=== PATIENT | female | born 1960 | race Two or more races ===

== ENCOUNTER 2018-12-04 05:26 | Inpatient (IN) | payer MEDICAID ==
[~2018-12-04] VITALS: Ht 162.6 cm; Wt 95.3 kg
[2018-12-04] MEDS ORDERED: LORA-259 PO (06:10)
[2018-12-04] MEDS ORDERED: DIGO125T PO (06:10)
[2018-12-04] MEDS ORDERED: FERR325T23 PO (06:10)
[2018-12-04] MEDS ORDERED: METO100T14 PO (06:10)
[2018-12-04] MEDS ORDERED: FURO-144 PO (06:10)
[2018-12-04] MEDS ORDERED: POTA10CA43 PO (06:10)
[2018-12-04] MEDS ORDERED: FAMO20TA8 PO (06:10)
[2018-12-04] MEDS ORDERED: AMIT150T PO (06:10)
[2018-12-04] MEDS ORDERED: ALBU18HF2 INH (06:10)
[2018-12-04] MEDS ORDERED: HYDR-4354 PO (06:10)
[2018-12-04] MEDS ORDERED: SPIR50TA5 PO (06:10)
[2018-12-04] MEDS ORDERED: LEVO50TA8 PO (06:10)
[2018-12-04] MEDS ORDERED: DOCU-141 PO (06:10)
[2018-12-04] MEDS ORDERED: FLUO20CA36 PO (06:10)
[2018-12-04] MEDS ORDERED: MAGN400T6 PO (06:10)
[2018-12-04] MEDS ORDERED: ISOS30TA6 PO (06:10)
[2018-12-04] MEDS ORDERED: CAPT12.53 PO (06:10)
[2018-12-04 07:02] VITALS: BP 124/76
--- NOTE | 2018-12-04 07:05 | NUR ---
RN INITIAL NOTES ADMITTED PATIENT AT 0540. PATIENT IS A/O X4. PATIENT HAS OXYGEN RUNNING AT 3L VIA NC. NO SIGNS OF RESPIRATORY DISTRESS. DENIES SHORTNESS OF BREATH. DENIES PAIN AT THIS TIME. ALL NEEDS MET AT THIS TIME. SAFETY PRECAUTIONS IMPLEMENTED. CALL LIGHT WITHIN REACH. SIDERAILS UP. BED LOCKED. WILL ENDORSE TO AM SHIFT.
[2018-12-04 08:00] VITALS: BP 105/65
--- NOTE | 2018-12-04 08:00 | NUR ---
MS RN NOTES PATIENT IN BED RESTING ALERT, ORIENTED X3 REPORTS PAIN TO LEFT KNEE. PATIENT SCHEDULED FOR LEFT KNEE ARTHROPLASTY, CONSENTS OBTAINED PATIENT SEEN BY DR. LAW. BED IN LOW LOCKED POSITION CALL LIGHT WITHIN REACH. PERIPHERAL IV ON LEFT WRIST G22 INTACT, PATENT. WILL CONTINUE TO MONITOR.
[2018-12-04] MEDS ORDERED: ZOLPIDEM TARTRATE 5 MG TABLET PO PRN (09:00)
[2018-12-04] MEDS ORDERED: ACETAMINOPHEN 325 MG TABLET PO PRN (09:00)
[2018-12-04] MEDS ORDERED: ONDANSETRON HCL/PF 4 MG/2 ML VIAL IVP PRN ×2 (09:00→11:00)
[2018-12-04] MEDS ORDERED: MAG HYDROX/AL HYDROX/SIMETH 30 ML UDC PO PRN ×2 (09:00→11:00)
[2018-12-04] MEDS ORDERED: MORPHINE SULFATE INJ 2 MG/ML DISP.SYRIN IV PRN (09:00)
[2018-12-04] MEDS ORDERED: MAGNESIUM HYDROXIDE 30 ML UDC PO PRN (09:00)
[2018-12-04] MEDS ORDERED: Z GUARD REMEDY 2 OZ OINT TP PRN (09:00)
[2018-12-04] MEDS ORDERED: HYDROCODONE/APAP 5/325MG 1 EACH TABLET PO PRN (09:00)
[2018-12-04] MEDS ORDERED: diphenhydrAMINE HCL 25 MG CAPSULE PO PRN (11:00)
[2018-12-04] MEDS ORDERED: BISACODYL SUPP (10 MG) 10 MG/SUPP.RECT SUPP.RECT RC PRN (11:00)
[2018-12-04] MEDS ORDERED: HYDROCODONE/APAP 10/325MG 1 EA TABLET PO PRN ×2 (11:00)
[2018-12-04] MEDS ORDERED: AMITRIPTYLINE HCL 25 MG TABLET PO PRN (11:00)
[2018-12-04] MEDS ORDERED: MENTHOL/CETYLPYRD (CEPACOL) 1 LOZ LOZENGE PO PRN (11:00)
[2018-12-04] MEDS ORDERED: LORAZEPAM 1 MG TABLET PO PRN (11:00)
[2018-12-04] MEDS ORDERED: SCOPOLAMINE HBR 1 EA PATCH.TD72 TD ONE (11:09)
[2018-12-04] MEDS ORDERED: FENTANYL PF 100MCG/2ML AMPUL ONE (11:09)
[2018-12-04] MEDS ORDERED: MIDAZOLAM HCL 2 MG/2ML VIAL ONE (11:09)
[2018-12-04] MEDS ORDERED: BUPIVACAINE 0.5 % PF 150 MG/30 ML VIAL ONE (11:26)
[2018-12-04] MEDS ORDERED: BACITRACIN 50000 UNITS/VIAL ONE (11:26)
[2018-12-04] MEDS ORDERED: TRANEXAMIC ACID 3,000 MG in SODIUM CHLORIDE IRRIG SOLUTION 70 ML IR ONE (12:00)
[2018-12-04] MEDS ORDERED: CLINDAMYCIN 900 MG/6 ML VIAL ONE (12:08)
[2018-12-04] MEDS ORDERED: HYDROMORPHONE INJ 2 MG/ML DISP.SYRIN ONE (12:18)
[2018-12-04] MEDS ORDERED: HYDROMORPHONE MDV 30 MG in IV NS 0.9% 15 ML, PCA TOTAL VOLUME 1 BAG IV PRN ×3 (13:00)
[2018-12-04] MEDS ORDERED: HYDROMORPHONE 1 MG/1 ML DISP.SYRIN ONE (13:32)
--- NOTE | 2018-12-04 15:00 | NUR ---
MS RN NOTES RECEIVED PATIENT FROM OR PATIENT APPEARS SEDATED, WHEN CALLING PATIENTS NAME SHE DOES OPEN EYES BUT DOES NOT ANSWER ANY QUESTIONS AND GOES RIGHT BACK TO SLEEP. OR NURSE AT BEDSIDE PATIENTS VS WNL BP 132/64 PULSE 99 O2 SATURATION 99 RESPIRATION 12. OR NURSE NOTIFIED ANESTHESIOLOGIST OF PATIENTS SYMPTOMS ORDERS TO CONTINUE MONITORING AND PLACE PATIENT ON TELE. PATIENT PLACED ON TELE MONITORING READING A-FIB. OR NURSE LEFT PATIENTS BEDSIDE STATING SHE WILL RETURN TO CHECK ON PATIENT. WILL CONTINUE CLOSE MONITORING.
--- NOTE | 2018-12-04 15:15 | NUR ---
CORPORATE SECURITIES RESEARCH ANALYST NOTES PATIENT NOTED WITH DECREASED RESPIRATION AT 10 BREATHS PER MINUTE ANESTHESIOLOGIST MADE AWARE STATES HE WILL BE AT PATIENTS BEDSIDE TO EVALUATE.
--- NOTE | 2018-12-04 15:30 | NUR ---
MS RN NOTES PATIENT WAS SEEN AND EVALUATED BY ANESTHESIOLOGIST NARCAN WAS ADMINISTERED IV AND ORDERS OBTAINED TO TRANSFER PATIENT TO [facility]. PATIENT AWAKE ABLE TO ANSWER SIMPLE QUESTIONS VS WNL. DINKEY LOCOMOTIVE ENGINEER NOTIFIED OF ORDERS WAITING FOR A BED.
--- NOTE | 2018-12-04 15:46 | NUR ---
DIP TANKER NOTES PATIENT TRANSFERRED TO [facility] ROOM 118 REPORT GIVEN AT BEDSIDE TO RN.
--- NOTE | 2018-12-04 19:15 | NUR ---
TD/RN INITIAL NOTES RECEIVED PT IN BED, AT BEDSIDE. RESPONSE TO QUESTION BUT APPEARS DROWSY AND WITH SOME CONFUSION. CONTROLLED AFIB ON TELE. ON SIMPLE MASK ON 6L. NO SOB NOTED. L WRIST G22 HEPLOCK INTACT AND PATENT. PT IS S/P LEFT KNEE ARTHROPLASTY. LLE ELEVATED WITH KNEE IMMOBILIZER. PARARESCUE CRAFTSMAN PUMP ORDER ON HOLD FOR NOW PT STILL APPEAR DROWSY. SAFETY MEASURES IN PLACED. CALL LIGHT WITHIN EASY REACH. WILL CONT TO MONITOR
[2018-12-04] MEDS ORDERED: KEY,NONCONTROL,TO KEEP IN PYXI 1 EA MC ONE (19:44)
[2018-12-04 20:00] VITALS: BP 124/84
--- NOTE | 2018-12-04 20:13 | NUR ---
[facility] RN NOTES PATIENT RECEIVED POST LEFT KNEE OPERATION. PATIENT HEAVILY SEDATED BUT RESPONDING APPROPRIATELY TO QUESTIONS. V/S WNL. LABOY AT BEDSIDE. REPORT TAKEN FROM TRANSFER AND PUMPHOUSE OPERATOR. PATIENT TO BE MONITORED FOR LOC AND SURGICAL SEDATION RECOVERY. NO SOB. PATIENT ON 6 LITERS O2 VIA MASK. PATIENT CARE HANDED OVER TO TEACHER PUBLIC HEALTH RN.
[2018-12-04] MEDS: CLINDAMYCIN 600 MG in IV D5W 50 ML IV SCH (20:27)
--- NOTE | 2018-12-04 20:51 | NUR ---
Met with patient and spouse at bedside. Patient had elective knee surgery done today. She lives with her spouse and adult son in a single level home in [place]. Prior to admission, she use her wheelchair for mobility. Her is her primary source of support and assist with adl's. She owns a walker, commode and wheelchair. Her CPM has been delivered and awaiting delivery for her shower chair. Patient states she was on homehealth in the past and would like to resume same homehealth services. Her family will bring in the homehealth contact info in am. Patient does not want to go to SNF, current plan is to return home. Her will provide ride. Addendum: 12/04/18 at 2053 by HUNTER CAPUTO RN Amended: Links added.
[2018-12-04] MEDS: FAMOTIDINE (20 MG) 20 MG TABLET PO SCH (21:00)
[2018-12-04] MEDS: IV LR 1000 ML 1,000 ML IV PRN (21:01)
[2018-12-05] VITALS (8 sets, daily range): BP systolic 110–141; BP diastolic 51–95
[2018-12-05] MEDS: CLINDAMYCIN 600 MG in IV D5W 50 ML IV SCH ×2 (00:17→05:17)
[2018-12-05] MEDS: HYDROMORPHONE 1 MG/1 ML DISP.SYRIN SQ PRN ×3 (05:53→17:41)
[2018-12-05 07:01] LABS: BASOPHILS % (AUTO) 0.3 % (0.0-2.0); EOSINOPHILS % (AUTO) 1.5 % (0.0-6.0); HEMATOCRIT 37 % (33-45); HEMOGLOBIN 12.4 g/dL (11.5-14.8); LYMPHOCYTES # (AUTO) 0.7 /CMM (0.8-4.8); LYMPHOCYTES % (AUTO) 8.7 % (20.0-44.0); MEAN CORPUSCULAR HGB CONC 34 g/dl (31.0-36.0); MEAN CORPUSCULAR VOLUME 96 fL (82-100); MONOCYTES # (AUTO) 0.6 /CMM (0.1-1.30); MONOCYTES % (AUTO) 7.1 % (2.0-12.0); NEUTROPHILS # (AUTO) 6.5 /CMM (1.8-8.9); NEUTROPHILS % (AUTO) 82.4 % (43.0-81.0); PLATELET COUNT (AUTO) 169 /CMM (150-450); RED BLOOD CELL COUNT(AUTO) 3.84 MIL/uL (4.0-5.2); WHITE BLOOD COUNT (AUTO) 7.9 K/uL (4.3-11.0)
[2018-12-05 07:03] LABS: CALCIUM, SERUM 9.1 mg/dL (8.5-10.1); CREATININE 1.3 mg/dL (0.6-1.3); MAGNESIUM 2.2 mg/dL (1.8-2.4); PHOSPHORUS 3.1 mg/dL (2.5-4.9); POTASSIUM 4.9 mmol/L (3.5-5.1)
--- NOTE | 2018-12-05 07:27 | NUR ---
RN NOTES PT IN STABLE CONDITION. NO ACUTE CHANGES THROUGHOUT SHIFT. ALL NEEDS ANTICIPATED. SAFETY MEASURES AND ASPIRATION PRECAUTION OBSERVED AT ALL TIMES. ENDORSED TO AM SHIFT RN FOR TULIO
--- NOTE | 2018-12-05 07:35 | NUR ---
RN NOTE: RECEIVED PATIENT IN BED, AWAKE, ALERT AND WITH EPISODES OF CONFUSION AT TIMES. RESPIRATION EVEN AND UNLABORED. ON O2 2L/MIN VIA NC AND SATURATING 95%. PAIN WAS MANAGED WITH DILAUDID 1MG SQ Q3HR PRN. (L) WRIST IV SITE NOTED PATENT AND INTACT AND INFUSING LR @ 100 ML/HR. (L) LOWER LEG NOTED WITH BRACE IN PLACED. PATIENT WAS NOTED WITH Theresa BARAKAT IN THE MANAGER PORT AND PER PM SHIFT NURSE IT WAS NOTED SINCE LAST NIGHT. WILL FOLLOW-UP WITH THE HOSPITALIST TODAY RE: THE MEDICATION RECONCILIATION INCLUDING THE BLOOD THINNER XARELTO. CALL LIGHT WITHIN REACH. NEEDS ANTICIPATED. PATIENT REMAINED ON NPO STATUS AT THIS TIME.
[2018-12-05] MEDS ORDERED: DOCUSATE SODIUM 100 MG CAPSULE PO SCH (09:00)
--- NOTE | 2018-12-05 09:04 | NUR ---
RN NOTE: SPOKE WITH DR. LUGO AND INFORMED HIM THAT THE PATIENT WAS NOTED AWAKE, ALERT WITH INTERMITTENT CONFUSION AT THIS TIME. NOT ON ANY FORM OF DISTRESS OR PAIN. SHE HAS BEEN A. FIB WITH HEART RATE OF 125 ON THE HEART MONITOR. PER MD, HE WILL COME TO THE UNIT AND SEE THE PATIENT TODAY BEFORE RESTARTING HER HOME MEDICATIONS. PER MD, OK TO GIVE PO MEDICATIONS NOW AND THE PATIENT MADE AWARE. NO DIET ORDER WAS STARTED FOR NOW PER MD. DR. LUGO WAS ALSO INFORMED THAT PER DR. ORONA (PAIN MGMT) THE PATIENT CAN BE STARTED WITH ASPIRIN.
[2018-12-05] MEDS: Fluoxetine 10 mg capsule PO SCH (10:00)
[2018-12-05] MEDS: FAMOTIDINE (20 MG) 20 MG TABLET PO SCH ×2 (10:00→21:35)
[2018-12-05] MEDS: ASPIRIN 325 MG TABLET PO SCH (10:39)
[2018-12-05] MEDS: IV LR 1000 ML 1,000 ML IV PRN ×2 (10:44→21:35)
[2018-12-05] MEDS ORDERED: FAMOTIDINE (20 MG) 20 MG TABLET PO PRN (12:30)
[2018-12-05] MEDS ORDERED: LORAZEPAM 1 MG TABLET PO PRN (12:30)
[2018-12-05] MEDS ORDERED: ALBUTEROL FS 2.5 MG/0.5 ML VIAL.NEB NEB PRN (13:30)
[2018-12-05] MEDS: DIGOXIN 0.125 MG TABLET PO SCH (14:13)
--- NOTE | 2018-12-05 16:36 | NUR ---
RN NOTE: CALLED AND SPOKE WITH DR. LUGO REGARDING THE PATIENT'S DIET. PER MD, START THE PATIENT WITH CARDIAC DIET FOR DINNER TODAY. ORDER, NOTED AND CARRIED OUT. PATIENT AND PRESENT AT THE BEDSIDE WERE BOTH INFORMED.
[2018-12-05] MEDS: MAGNESIUM OXIDE 400 MG TABLET PO SCH (16:43)
[2018-12-05] MEDS: DOCUSATE SODIUM 100 MG CAPSULE PO SCH (16:43)
[2018-12-05] MEDS: POTASSIUM CHLORIDE 10 MEQ TABLET.SA PO SCH (16:43)
[2018-12-05] MEDS: FERROUS SULFATE (325 MG) 325 MG/TAB TABLET PO SCH (16:43)
[2018-12-05] MEDS: RIVAROXABAN 15 MG TABLET PO SCH (16:44)
[2018-12-05] MEDS: FUROSEMIDE 40 MG TABLET PO SCH (16:45)
[2018-12-05] MEDS ORDERED: CAPTOPRIL 12.5 MG TABLET PO SCH (17:00)
--- NOTE | 2018-12-05 19:40 | NUR ---
RN NOTE: PATIENT ON STABLE CONDITION. ATE 100% OF HER DINNER MEAL. PAIN MEDICATION (DILAUDID 1MG SQ) WAS MANAGING THE PATIENT'S PAIN. BEDSIDE REPORT WAS GIVEN TO PM SHIFT NURSE FOR CONTINUITY OF CARE.
--- NOTE | 2018-12-05 19:55 | NUR ---
RN INITIAL NOTES: RECEIVED REPORT FROM JANIE SEVERINO. PT IN BED, SLEEPING, AROUSES TO TACTILE STIMULI, APPEARS CALM AND COMFORTABLE, PT IS A/O X2-3, FORGETFUL CONFUSED AT TIMES. S/P LEFT KNEE ARTHROPLASTY 12/[address] LAW. LEFT LEG SURGICAL DRESSING IN PLACED, BRACED IN PLACED, LEG OFFLOADED ON PILLOWS. PT DENIES ANY NUMBNESS TINGLING SENSATION ON LEFT LEG. FOR PT EVAL IN AM. IV ACCESS PATENT AND FLUSHING WELL, INFUSING WITH LR AT 100ML/HR. SAFETY PRECAUTIONS FOR FALL INITIATED, CALL LIGHT IN REACH, WILL CONTINUE MONITORING PT.
--- NOTE | 2018-12-05 20:30 | NUR ---
RN NOTES: AFIB 106, HIGHEST 140 DURING THE DAY, MD AWARE, MED RECON DONE, DUE MEDS GIVEN BY DAY RN. PT HAS METOPROLOL FOR NIGHT SCHEDULE
--- NOTE | 2018-12-05 21:00 | NUR ---
RN NOTES: PT SLEEPING, AROUSABLE, STATED HER PAIN IS MANAGEABLE 3-12/23, OFFERED PAIN MEDICATION PATIENT INSTEAD ASKED FOR FOOD INSTEAD, WILL CONTINUE MONITORING PT.
[2018-12-05] MEDS: METOPROLOL TARTRATE 50 MG TABLET PO SCH (21:44)
[2018-12-05] MEDS ORDERED: AMITRIPTYLINE HCL 50 MG TABLET PO SCH (22:00)
--- NOTE | 2018-12-05 22:30 | NUR ---
RN NOTES: BED BATH PROVIDED BY TALENT DEVELOPMENT DIRECTOR, PT DENIES ANY PAIN AT THIS TIME
[2018-12-06] VITALS (7 sets, daily range): BP systolic 103–138; BP diastolic 59–76
--- NOTE | 2018-12-06 00:30 | NUR ---
RN NOTES: FOUND PT SLEEPING, APPEARS CALM AND COMFORTABLE, RESPIRATION EVEN AND UNLABORED, ON OXYGEN 2L VIA NC, WILL CONTINUE MONITORING PT.
[2018-12-06] MEDS: HYDROMORPHONE 1 MG/1 ML DISP.SYRIN SQ PRN ×3 (01:02→15:21)
--- NOTE | 2018-12-06 01:03 | NUR ---
PRN DILAUDID: PT C/O LEFT KNEE PAIN 05/25 REQUESTING FOR PAIN MEDICATION, PT STATED " SHE WANTS THE INJECTION", PRN DILAUDID 1MG SQ ADMINISTERED AT THIS TRIME, WILL CONTINUE TO MONITOR AND REASSES
--- NOTE | 2018-12-06 03:00 | NUR ---
RN NOTES: ASSISTED RIB KNITTER IN PROVIDING BED BATH TO THE PT. TURN AND REPOSITION USING LOG ROLL TECHNIQUE
--- NOTE | 2018-12-06 06:41 | NUR ---
RN CLOSING NOTES: PT REMAINS ON 2L OXYGEN VIA NC, IV ACCESS PATENT AND FLUSHING WELL, INFUSING WITH LR AT 100ML/HR. ON AFIB HR 95. LEFT LEG DRESSING REMAINS C/D/I, NO ACTIVE BLEEDING NOTED, LEG BRACE IN PLACED, BLE OFFLOADED ON PILLOWS. PT IS AWAKE, AROUSABLE, COMMUNICATIVE, A/O X3, WITH EPISODE OF FORGETFUL/CONFUSION. VS REMAINS STABLE, NEEDS ATTENDED, FOR PT EVAL IN AM. . SAFETY PRECAUTIONS FOR FALL REMAINS ENGAGED, CALL LIGHT IN REACH, WILL ENDORSE TO DAY RN FOR TULIO.
--- NOTE | 2018-12-06 07:20 | NUR ---
PROCESS IMPROVEMENT ANALYST INITIAL NOTES RECEIVED REPORT FROM FILLING WINDER RN. PT IN BED, APPEARS CALM AND COMFORTABLE, PT IS A/O X2-3, FORGETFUL CONFUSED AT TIMES. S/P LEFT KNEE ARTHROPLASTY 12/[address] LAW. LEFT LEG SURGICAL DRESSING IN PLACED, BRACED IN PLACED, LEG OFFLOADED ON PILLOWS. PT DENIES ANY NUMBNESS TINGLING SENSATION ON LEFT LEG. FOR PHYSICAL THERAPIST EVAL TODAY. IV ACCESS PATENT AND FLUSHING WELL, INFUSING WITH LR AT 100ML/HR. SAFETY PRECAUTIONS FOR FALL INITIATED, CALL LIGHT WITHIN REACH, WILL CONTINUE MONITORING PT.
[2018-12-06] MEDS ORDERED: LEVOTHYROXINE SODIUM 50 MCG TABLET PO SCH (07:30)
[2018-12-06] MEDS: LISINOPRIL (5MG) 5 MG TABLET PO SCH ×2 (08:31→17:00)
[2018-12-06] MEDS: ASPIRIN 325 MG TABLET PO SCH (08:31)
[2018-12-06] MEDS: POTASSIUM CHLORIDE 10 MEQ TABLET.SA PO SCH ×2 (08:31→17:45)
[2018-12-06] MEDS: DOCUSATE SODIUM 100 MG CAPSULE PO SCH ×2 (08:31→17:46)
[2018-12-06] MEDS: FAMOTIDINE (20 MG) 20 MG TABLET PO SCH (08:32)
[2018-12-06] MEDS: FERROUS SULFATE (325 MG) 325 MG/TAB TABLET PO SCH ×2 (08:32→17:46)
[2018-12-06] MEDS: FUROSEMIDE 40 MG TABLET PO SCH ×2 (08:33→17:46)
[2018-12-06] MEDS: METOPROLOL TARTRATE 50 MG TABLET PO SCH (08:33)
[2018-12-06] MEDS: SPIRONOLACTONE 25 MG TABLET PO SCH ×2 (08:34→17:00)
[2018-12-06] MEDS: MAGNESIUM OXIDE 400 MG TABLET PO SCH ×2 (08:34→17:46)
[2018-12-06] MEDS: Fluoxetine 10 mg capsule PO SCH (08:40)
--- NOTE | 2018-12-06 08:50 | NUR ---
[employer] PROTOTYPING ENGINEER NOTES PHYSICAL THERAPIST AT BEDSIDE.
[2018-12-06] MEDS ORDERED: ISOSORBIDE MONONITRATE (30MG) 30 MG TAB.SR.24H PO SCH (09:00)
[2018-12-06] MEDS ORDERED: FLUOXETINE HCL 20 MG CAPSULE PO SCH (09:00)
--- NOTE | 2018-12-06 12:30 | NUR ---
TIME STUDY TECHNOLOGIST NOTES SPOKE WITH PATIENT AND PATIENT'S FAMILY AT BEDSIDE ABOUT DISCHARGE ORDERS. PATIENT STATED SHE IS COMFORTABLE TO BE DISCHARGED HOME. STATED HE WILL BE ABLE TO PICK HER UP AT 1900 TODAY.
[2018-12-06] MEDS: DIGOXIN 0.125 MG TABLET PO SCH (13:17)
[2018-12-06] MEDS: RIVAROXABAN 15 MG TABLET PO SCH (17:46)
--- NOTE | 2018-12-06 19:20 | NUR ---
DISCHARGE NOTES PATIENT ALERT AND ORIENTED X3. ALL NEEDS MET. ALL MD ORDERS ATTENDED. EXIT CARE DONE. IV REMOVED. LEFT KNEE PICTURE TAKEN AND RECORDED, NO S/S OF INFECTION. NO BLEEDING NOTED. STABLE UPON DISCHARGE. PATIENT LEFT VIA PRIVATE CAR WITH CORNELIO.
== END 2018-12-06 18:56 | disposition home health service (06) | DRG 302 ==
LOC: DS 05:26 → MED 05:27 → TELE-TD 16:35 → TELE1 12-05 12:31 → MEDSG1 12-06 13:34
PROVIDERS: ADMIT Family Medicine; ATTEND Family Medicine
PROC: 0SRD0J9 Replacement of Left Knee Joint with Synthetic Substitute, Cemented, Open Approach (ICD-10-PCS; principal; 2018-12-04)
DX: M17.12 Unilateral primary osteoarthritis, left knee (principal); I13.0 Hypertensive heart and chronic kidney disease with heart failure and stage 1 through stage 4 chronic kidney disease, or unspecified chronic kidney disease; I50.9 Heart failure, unspecified; E66.01 Morbid (severe) obesity due to excess calories; M87.9 Osteonecrosis, unspecified; F11.20 Opioid dependence, uncomplicated; J44.9 Chronic obstructive pulmonary disease, unspecified; Z86.73 Personal history of transient ischemic attack (TIA), and cerebral infarction without residual deficits; N18.9 Chronic kidney disease, unspecified; E03.9 Hypothyroidism, unspecified; Z82.49 Family history of ischemic heart disease and other diseases of the circulatory system; Z79.51 Long term (current) use of inhaled steroids; Z79.899 Other long term (current) drug therapy; F32.9 Major depressive disorder, single episode, unspecified; Z68.36 Body mass index [BMI] 36.0-36.9, adult; Z88.9 Allergy status to unspecified drugs, medicaments and biological substances; Z79.01 Long term (current) use of anticoagulants; I48.91 Unspecified atrial fibrillation; G89.29 Other chronic pain
CPT/HCPCS: 36415; 80048-TC; 80061-TC; 80162-TC; 83735-TC; 84100-TC; 85025-TC; 86850-TC; 88305-TC; 88311-TC; A4216; A4217; A6253; A6402; C1713; G0378; J1100; J1170; J2250; J2270; J2704; J3010; J3490; J7060; J7120; L1830

== ENCOUNTER 2019-06-04 05:00 | Day surgery (SDC) | payer MEDICAID ==
[~2019-06-04 05:00] MED LIST: ALBU18HF2 INH; ALBUTEROL HALF STRENGTH 1.25 MG/3 ML VIAL.NEB ONE; AMIT150T PO; CAPT12.53 PO; DIGO125T PO; DOCU-141 PO; FAMO20TA8 PO; FERR325T23 PO; FLUO20CA36 PO; FURO-144 PO; HYDR-4354 PO; ISOS30TA6 PO; LEVO50TA8 PO; LORA-259 PO; MAGN400T6 PO; METO100T14 PO; POTA10CA43 PO; SPIR50TA5 PO
[2019-06-04] MEDS ORDERED: MIDAZOLAM HCL 2 MG/2ML VIAL ONE (06:24)
[2019-06-04] MEDS ORDERED: FENTANYL PF 250MCG/5ML AMPUL ONE (06:24)
[2019-06-04] MEDS ORDERED: FAMOTIDINE/PF INJ 20 MG/2 ML VIAL IV ONE (06:24)
[2019-06-04] MEDS ORDERED: CLINDAMYCIN 600 MG in IV NS 0.9% 50 ML IV ONE (06:30)
[2019-06-04] MEDS ORDERED: ANESTHESIA TRAY IN PYXIS 1 EA TRAY MC ONE (06:32)
[2019-06-04] MEDS ORDERED: LIDOCAINE HCL/MPF 1% 30 ML VIAL IJ ONE (06:32)
[2019-06-04] MEDS ORDERED: methylPREDNISolone ACETATE 80 MG/ML VIAL ONE (06:33)
[2019-06-04] MEDS ORDERED: CLINDAMYCIN 900 MG/6 ML VIAL ONE (06:55)
== END 2019-06-04 10:10 | disposition home or self-care (01) ==
LOC: DS 05:00
PROVIDERS: ATTEND Specialist
DX: S83.241A Other tear of medial meniscus, current injury, right knee, initial encounter (principal); S83.281A Other tear of lateral meniscus, current injury, right knee, initial encounter; M94.261 Chondromalacia, right knee; I48.91 Unspecified atrial fibrillation; Z79.899 Other long term (current) drug therapy; J44.9 Chronic obstructive pulmonary disease, unspecified; K21.9 Gastro-esophageal reflux disease without esophagitis; X58.XXXA Exposure to other specified factors, initial encounter; Y93.89 Activity, other specified; Y92.89 Other specified places as the place of occurrence of the external cause; Y99.8 Other external cause status; I11.0 Hypertensive heart disease with heart failure; I50.9 Heart failure, unspecified; F32.9 Major depressive disorder, single episode, unspecified; Z82.49 Family history of ischemic heart disease and other diseases of the circulatory system; Z88.0 Allergy status to penicillin; Z88.1 Allergy status to other antibiotic agents; Z88.8 Allergy status to other drugs, medicaments and biological substances
CPT/HCPCS: 29880; A4216; A4217; A6253; J1040; J2250; J2405; J2704; J2765; J3010; J3490 ×3